=== PATIENT | female | born 1985 | race Caucasian/White ===

== ENCOUNTER 2019-11-20 15:34 | Outpatient (CLI) | payer OTHER ==
--- NOTE | 2019-11-20 16:32 | RAD ---
Lumbar spine 3 views HISTORY: Back pain. FINDINGS: There are 5 lumbar type vertebrae. Pedicles are intact. Vertebral body heights and alignmen t are maintained. No acute fracture or dislocation. IMPRESSION : No abnormalities are demonstrated.
== END 2019-11-20 15:35 | disposition home or self-care (01) ==
LOC: NAV RAD 15:34
PROVIDERS: ATTEND Family Medicine
DX: S39.012A Strain of muscle, fascia and tendon of lower back, initial encounter (principal)
CPT/HCPCS: 72100